=== PATIENT | female | born 1965 | race Caucasian/White ===

== ENCOUNTER 2018-09-02 12:01 | Emergency (ER) | payer BC, OTHER, SELFPAY ==
[2018-09-02 12:40] LABS: #Basophils 0.1 thou/uL (0.0-0.2); #Eosinphils 0.1 thou/uL (0.0-0.7); #Lymphocytes 2.4 thou/uL (1.20-3.40); #Monocytes 0.5 thou/uL (0.11-0.59); #Neutrophils 2.9 thou/uL (1.40-6.50); %Basophils 1.3 % (0.0-1.0); %Eosinophils 1.4 % (0.0-10.0); %Lymphocytes 40.6 % (21.0-51.0); %Neutrophils 48.6 % (42.0-75.0); Hemoglobin 13.7 g/dL (12.0-16.0); Mean Corpuscular HGB CONC 33.2 g/dL (32.0-36.0); Mean Corpuscular Volume 87.2 fL (78.0-98.0); Mean Platelet Volume 7.1 fL (7.4-10.4); Platelet Count 262 thou/uL (130-400); RBC Distribution Width 12.1 % (11.5-14.5); Red Blood Cell (RBC) Count 4.72 mill/uL (4.20-5.40); White Blood Cell (WBC) Count 5.9 thou/uL (4.8-10.8)
[2018-09-02 13:11] LABS: ALT (SGPT) 27 U/L (8-55); AST (SGOT) 21 U/L (5-34); Albumin 4.4 g/dL (3.5-5.0); Alkaline Phosphatase 105 U/L (40-150); Anion Gap 12 mmol/L (10-20); BUN (Urea Nitrogen) 12 mg/dL (9.8-20.1); Bilirubin, Total 0.4 mg/dL (0.2-1.2); Calc. Creatinine Clearance 0 mL/min (70-130); Calcium 9.4 mg/dL (7.8-10.44); Carbon Dioxide 27 mmol/L (22-29); Chloride 102 mmol/L (98-107); Estimated GFR-MDRD 74; Globulin 2.6 g/dL (2.4-3.5); Glucose 92 mg/dL (70-105); Lipase 47 U/L (8-78); Potassium 4.3 mmol/L (3.5-5.1); Sodium 137 mmol/L (136-145)
--- NOTE | 2018-09-02 14:12 | ULT ---
EXAM: US Gallbladder RUQ CLINICAL HISTORY: Epigastric pain, x1 week. COMPARISON: None. FINDINGS: Pancreas: Head of the pancreas has a normal echotexture. The remainder the pancreas is obscured. Liver:Slightly heterogeneous echotexture which may be due to hepatic steatosis or hepatocellular dise ase. Limited evaluation for hepatic masses and intrahepatic biliary dilatation. Right hepatic lobe measures 13.5 cm Portal vein: Patent with appropriate directional flow Gallbladder: Surgically absent Calderón's sign:Not applicable Bile ducts: Suboptimal evaluation the common bile duct Right kidney: No hydronephrosis. Right kidney measures 4.9 x 11.1 x 5.3 cm in length. IMPRESSION: 1. Surgically absent gallbladder 2. Slightly heterogeneous hepatic parenchymal echotexture. Correlate for hepatocellular disease versu s hepatic steatosis.
[2018-09-02] MEDS ORDERED: Mag-Al 1200 mg/1200 mg/30 ML UDCUP ONE (14:44)
[2018-09-02] MEDS ORDERED: Lidocaine Viscous Sol 2% 15 ml UD Cup ONE (14:45)
[2018-09-02 15:01] LABS: Bilirubin Negative (Negative); Blood, Urine Trace (Negative); Clarity CLEAR (Clear); Glucose, Urine (Dipstick) Negative (Negative); Leukocyte Negative (Negative); Nitrite Negative (Negative); Protein, Urine (Dipstick) Negative (Neg-Trace); Urobilinogen 0.2 mg/dL (0.2-1.0)
[2018-09-02 15:04] LABS: Bacteria/HPF None Seen HPF (None Seen); Hyaline Casts/LPF 0-3 HYALINE CAST LPF (0-3 Hyaline); RBC/HPF 0-3 HPF (0-3); Squamous Epithelial None Seen HPF (0-3); WBC/HPF None Seen HPF (0-3)
== END 2018-09-02 16:54 | disposition home or self-care (01) ==
LOC: ERS 12:01
DX: K27.9 Peptic ulcer, site unspecified, unspecified as acute or chronic, without hemorrhage or perforation (principal)
CPT/HCPCS: 36415; 76705; 80053; 81003; 81015; 83690; 84484; 85025; 93005

== ENCOUNTER 2022-09-14 07:26 | Outpatient (CLI) | payer OTHER | END 2022-09-14 07:27 | disposition home or self-care (01) | LOC: SCSMRI 07:26 | PROVIDERS: ATTEND Nurse Practitioner Family | DX: M75.101 Unspecified rotator cuff tear or rupture of right shoulder, not specified as traumatic (principal); S43.491A Other sprain of right shoulder joint, initial encounter; M24.211 Disorder of ligament, right shoulder; M75.81 Other shoulder lesions, right shoulder ==